=== PATIENT | female | born 1970 | race Caucasian/White ===

== ENCOUNTER 2018-07-28 17:06 | Emergency (ER) | payer MEDICAID ==
[~2018-07-28] VITALS: Ht 160 cm; Wt 67.7 kg
[2018-07-28] MEDS ORDERED: CLON0.5T PO (17:22)
[2018-07-28] MEDS ORDERED: FLUO20CA30 PO (17:22)
[2018-07-28] MEDS ORDERED: HYDR-4061 PO (17:22)
[2018-07-28 18:51] VITALS: BP 127/80
[2018-07-28] MEDS ORDERED: KETOROLAC TROMETHAMINE 30 MG/ML VIAL IM ONE (19:00)
== END 2018-07-28 19:22 | disposition home or self-care (01) ==
LOC: EMS 17:10
DX: S00.83XA Contusion of other part of head, initial encounter (principal); F41.9 Anxiety disorder, unspecified; F32.9 Major depressive disorder, single episode, unspecified; Z79.891 Long term (current) use of opiate analgesic; Z79.899 Other long term (current) drug therapy; Y04.0XXA Assault by unarmed brawl or fight, initial encounter; Y93.89 Activity, other specified; Y92.89 Other specified places as the place of occurrence of the external cause; Y99.8 Other external cause status
CPT/HCPCS: 96372; 99283; J1885

== ENCOUNTER 2021-11-26 18:19 | Emergency (ER) | payer MEDICAID ==
[~2021-11-26] VITALS: Ht 160 cm; Wt 76.4 kg
[~2021-11-26 18:19] MED LIST: CLON0.5T PO; FLUO20CA30 PO; HYDR-4061 PO
[2021-11-26 18:31] VITALS: BP 139/82
[2021-11-26 19:28] LABS: BASOPHILS % (AUTO) 0.8 % (0.0-2.0); EOSINOPHILS % (AUTO) 1.1 % (1.0-6.0); HEMATOCRIT 38.6 % (36-46); LYMPHOCYTES # (AUTO) 1.4 K/uL (1.0-4.8); LYMPHOCYTES % (AUTO) 26.4 % (22.0-44.0); MEAN CORPUSCULAR HEMOGLOBIN 29.8 pg (26.0-34.0); MEAN CORPUSCULAR HGB CONC 33.7 G/dL (31.0-37.0); MEAN CORPUSCULAR VOLUME 88 fL (80-100); MONOCYTES # (AUTO) 0.4 K/uL (0.1-1.0); MONOCYTES % (AUTO) 7.1 % (2.0-9.0); NEUTROPHILS # (AUTO) 3.4 K/uL (1.8-7.7); NEUTROPHILS % (AUTO) 64.6 % (40.0-70.0); PLATELET COUNT (AUTO) 195 K/uL (150-450); RED BLOOD CELL COUNT(AUTO) 4.37 MIL/uL (4.00-5.20); RED CELL DISTRIBUTION WIDTH 15.4 % (11.5-14.5)
[2021-11-26 19:30] LABS: ANION GAP 8 mmol/L (8-16); CALCIUM, TOTAL 8.9 mg/dL (8.8-10.5); CARBON DIOXIDE 28 mmol/L (22-29); CHLORIDE 104 mmol/L (98-107); CREATININE 0.87 mg/dL (0.60-1.30); GLOMERULAR FILTR. RATE CALC > 60 mL/min (>60); GLUCOSE,RANDOM 129 mg/dL (70-110); POTASSIUM 3.6 mmol/L (3.5-5.1); SODIUM SERUM 140 mmol/L (136-145); UREA NITROGEN, BLOOD 14 mg/dL (7-18)
[2021-11-26 19:36] LABS: ALANINE AMINOTRANSFERASE 38 U/L (12-78); ALBUMIN 3.8 g/dL (3.4-5.0); ALKALINE PHOSPHATASE 118 U/L (46-116); ASPARTATE AMINOTRANSFERASE 20 U/L (15-37); BILIRUBIN,TOTAL 0.4 mg/dL (0.1-1.0); TOTAL PROTEIN, SERUM 7.1 g/dL (6.4-8.2)
[2021-11-26] MEDS ORDERED: HALOPERIDOL 5 MG TABLET PO ONE (19:45)
[2021-11-26] MEDS ORDERED: LORazepam 1 MG TABLET PO ONE (19:45)
[2021-11-26 20:24] LABS: COVID AG,FIA SOURCE NASOPHARYNGEAL
[2021-11-27] MEDS ORDERED: MIRT-89 PO (11:35)
[2021-11-27] MEDS ORDERED: OLAN5TAB52 PO (11:35)
== END 2021-11-26 21:47 | disposition home or self-care (01) ==
LOC: EMS 18:29
DX: R44.0 Auditory hallucinations (principal); F41.9 Anxiety disorder, unspecified; I10 Essential (primary) hypertension; Z20.822 Contact with and (suspected) exposure to COVID-19
CPT/HCPCS: 36415; 80053; 85025; 87426; 99284; G0480

== ENCOUNTER 2021-11-26 22:25 | Outpatient (CLI) | payer MEDICAID ==
[2021-11-26 23:18] VITALS: BP 135/84
[2021-11-26 23:19] VITALS: BP 135/84
[2021-11-27] MEDS ORDERED: OLANZapine 5 MG TABLET PO SCH ×2 (00:30→09:00)
[2021-11-27 08:17] VITALS: BP 130/77
[2021-11-27] MEDS ORDERED: OLAN5TAB52 PO (11:35)
[2021-11-27] MEDS ORDERED: MIRT-89 PO (11:35)
[2021-11-27] MEDS ORDERED: MIRTAZAPINE 15 MG TABLET PO SCH (21:00)
== END 2021-11-27 11:40 | disposition home or self-care (01) ==
LOC: CSU 22:25
PROVIDERS: ATTEND Student in an Organized Health Care Education/Training Program
DX: F41.9 Anxiety disorder, unspecified (principal); G47.00 Insomnia, unspecified; F39 Unspecified mood [affective] disorder
CPT/HCPCS: 90792; Z7610